=== PATIENT | male | born 1955 | race Caucasian/White ===

== ENCOUNTER 2017-07-28 16:32 | Emergency (ER) | payer OTHER ==
[~2017-07-28] VITALS: Ht 182.9 cm; Wt 100.0 kg
[2017-07-28 18:34] VITALS: BP 119/56
== END 2017-07-28 19:01 | disposition home or self-care (01) | DRG 605 ==
LOC: ED 16:32 → EDBD 17:02 → ED 17:02
DX: S00.01XA Abrasion of scalp, initial encounter (principal); W01.0XXA Fall on same level from slipping, tripping and stumbling without subsequent striking against object, initial encounter; Y92.410 Unspecified street and highway as the place of occurrence of the external cause